=== PATIENT | female | born 1975 | race Caucasian/White ===

== ENCOUNTER → 2017-03-04 | Outpatient (CLI) | payer OTHER ==
--- NOTE | 2017-03-04 13:17 | Diagnostic Imaging Report ---
PROCEDURE: US Thyroid. TECHNIQUE: Multiple real-time grayscale images were obtained of the thyroid in various projections. INDICATION: Abnormal thyroid function test. COMPARISON: None. DISCUSSION: The thyroid gland is upper limits of normal in size. The right thyroid measures 5.8 x 1.5 x 2.3 cm. Left thyroid measures 5.5 x 1.6 x 1.7 cm. 3 mm cyst within the right thyroid gland is likely benign. Additional 5 mm complex cyst within the inferior left thyroid lobe is likely benign though indeterminate. No other solid nodule identified. The thyroid gland is normal in echotexture with normal color Doppler blood flow. No abnormal adjacent lymph nodes identified. IMPRESSION: 1. Subcentimeter thyroid nodules are likely benign though recommend 6-12 month sonographic followup to document stability. Dictated by: Dictated on workstation # [id number]
== END ==
LOC: RAD 09:57
PROVIDERS: ATTEND Family Medicine
DX: E03.9 Hypothyroidism, unspecified (principal)
CPT/HCPCS: 76536